=== PATIENT | male | born 1995 | race African-American/Black ===

== ENCOUNTER 2019-07-26 03:35 | Emergency (ER) | payer SELFPAY ==
[~2019-07-26] VITALS: Ht 190.5 cm; Wt 83.9 kg
--- NOTE | 2019-07-26 04:00 | NUR ---
Patient ambulated with stable gait. A/OX4. Patient came for c/o cough that has not resolved for 2 weeks now after being treated with course of ZPAK and tessalon. Patient states that he still has chest discomfort. Respiratory even and unlabored. Denies any GI/ distress noted, no n/v/d.
--- NOTE | 2019-07-26 04:09 | NUR ---
ERMD at bedside for MSE
[2019-07-26] MEDS ORDERED: predniSONE 50 MG TABLET ONE (04:28)
[2019-07-26] MEDS ORDERED: predniSONE 10 MG TABLET ONE (04:28)
[2019-07-26] MEDS ORDERED: predniSONE 20 MG TABLET PO ONE (04:30)
[2019-07-26 04:31] VITALS: BP 128/81
--- NOTE | 2019-07-26 04:31 | NUR ---
Patient discharged to home in stable conditon. Written and verbal after care instructions given. Patient verbalizes understanding of instructions. Patient ambulated with stable gait.
== END 2019-07-26 04:34 | disposition home or self-care (01) ==
LOC: ER 03:38
DX: J45.909 Unspecified asthma, uncomplicated (principal); Z88.8 Allergy status to other drugs, medicaments and biological substances
CPT/HCPCS: 99283; J7512 ×2; A4663